=== PATIENT | female | born 1995 | race American Indian/Alaskan Native ===

== ENCOUNTER 2017-02-13 21:36 | Emergency (ER) | payer SELFPAY ==
[2017-02-13 22:15] VITALS: BP 119/57
[2017-02-13 23:07] LABS: Bilirubin,Urine NEG (Negative); Blood,Urine NEG (Negative); Ketones,Urine TR mg/dL (Negative); Leukocyte Esterase,Urine TR (Negative); Mucus,Urine 3+ /HPF; Nitrite,Urine NEG (Negative)
[2017-02-13 23:16] LABS: Basophils % (Auto) 0.5 % (0.0-1.8); Eosinophils % (Auto) 3.4 % (0.0-4.3); Hematocrit 29.8 % (30.3-42.9); Hemoglobin 9.2 gm/dl (10.1-14.3); Mean Corpuscular HGB Conc 31 % (30-34); White Blood Count 6.8 K/mm3 (4.5-11.0)
[2017-02-13 23:18] LABS: Mean Corpuscular Hemoglobin 20 pg (28-32); Mean Corpuscular Volume 65 fl (79-97); Platelet Count 204 K/mm3 (140-440); Red Cell Distribution Width 22.4 % (13.2-15.2)
[2017-02-13 23:30] LABS: Alanine Aminotransferase 5 units/L (7-56); Albumin/Globulin Ratio 1.5 %; Alkaline Phosphatase 47 units/L (35-129); Anion Gap 16 mmol/L; Blood Urea Nitrogen 9 mg/dL (7-17); Calcium 9.3 mg/dL (8.4-10.2); Carbon Dioxide 26 mmol/L (22-30); Chloride 103.9 mmol/L (98-107); Glucose 83 mg/dL (65-100); Lipase 17 units/L (13-60); Potassium 4.2 mmol/L (3.6-5.0); Sodium 142 mmol/L (137-145); Total Protein 6.7 g/dL (6.3-8.2)
[2017-02-13 23:31] LABS: Alanine Aminotransferase 5 units/L (7-56); Albumin 4.1 g/dL (3.9-5); Albumin/Globulin Ratio 1.6 %; Alkaline Phosphatase 46 units/L (35-129); Amylase 79 units/L (27-131); Bilirubin,Total < 0.20 mg/dL (0.1-1.2); Total Protein 6.7 g/dL (6.3-8.2)
[2017-02-13 23:32] LABS: Bilirubin,Direct < 0.2 mg/dL (0-0.2)
== END 2017-02-14 06:58 | disposition left against medical advice (07) ==
LOC: ED 21:36
DX: J45.909 Unspecified asthma, uncomplicated (principal); R10.9 Unspecified abdominal pain; Z53.21 Procedure and treatment not carried out due to patient leaving prior to being seen by health care provider
CPT/HCPCS: 36415; 80053; 80074; 81001; 81025; 82150; 83690; 85025